=== PATIENT | female | born 1965 | race Two or more races ===

== ENCOUNTER 2017-09-20 12:46 | Outpatient (CLI) | payer OTHER ==
[2017-09-21] MEDS ORDERED: ALTACE2.5 MG PO (09:28)
== END 2017-09-20 14:29 | disposition home or self-care (01) ==
LOC: RAD 12:46
DX: J45.998 Other asthma (principal)

== ENCOUNTER 2017-09-27 05:35 | Day surgery (SDC) | payer OTHER ==
[~2017-09-27 05:35] MED LIST: ALTACE2.5 MG PO
[2017-09-27] MEDS ORDERED: CODE1TAB37 PO (11:04)
[2017-09-27] MEDS ORDERED: DOXYCYCLINE HY100 MG PO (11:04)
== END 2017-09-27 13:50 | disposition home or self-care (01) ==
LOC: CIR.AMB 05:35
DX: N84.0 Polyp of corpus uteri (principal); N72 Inflammatory disease of cervix uteri

== ENCOUNTER 2018-06-10 11:52 | Outpatient (CLI) | payer OTHER ==
[~2018-06-10 11:52] MED LIST changes: +CODE1TAB37 PO; +DOXYCYCLINE HY100 MG PO
== END 2018-06-10 17:00 | disposition home or self-care (01) ==
LOC: MAMO-SONO 11:52
DX: Z12.31 Encounter for screening mammogram for malignant neoplasm of breast (principal); N60.11 Diffuse cystic mastopathy of right breast

== ENCOUNTER → 2019-10-18 | Outpatient (CLI) | payer OTHER | END | disposition home or self-care (01) | LOC: RAD 11:00 | DX: J45.998 Other asthma (principal) ==

== ENCOUNTER 2019-10-23 10:45 | Inpatient (IN) | payer OTHER ==
[~2019-10-23] VITALS: Ht 157.5 cm; Wt 56.7 kg
[2019-11-01] MEDS ORDERED: KETO10TA2 PO (08:57)
[2019-11-01] MEDS ORDERED: Tylenol #3 PO (08:57)
[2019-11-01] MEDS ORDERED: FLAGYL500MG PO (08:57)
== END 2019-11-01 11:45 | disposition home or self-care (01) | DRG 742 ==
LOC: O/R 10-30 06:00 → OB/GYN 10-30 06:00 → SURH 10-30 07:00 → O/R 10-30 10:45 → OB/GYN 10-30 13:32
PROVIDERS: ADMIT Obstetrics & Gynecology
PROC: 0UB20ZZ Excision of Bilateral Ovaries, Open Approach (ICD-10-PCS; 2019-10-30)
PROC: 0UB70ZZ Excision of Bilateral Fallopian Tubes, Open Approach (ICD-10-PCS; 2019-10-30)
PROC: 0UQF0ZZ Repair Cul-de-sac, Open Approach (ICD-10-PCS; 2019-10-30)
PROC: 0USG0ZZ Reposition Vagina, Open Approach (ICD-10-PCS; 2019-10-30)
PROC: 0TJB8ZZ Inspection of Bladder, Via Natural or Artificial Opening Endoscopic (ICD-10-PCS; 2019-10-30)
PROC: 0UT90ZZ Resection of Uterus, Open Approach (ICD-10-PCS; principal; 2019-10-30 07:00)
DX: D25.1 Intramural leiomyoma of uterus (principal); K91.81 Other intraoperative complications of digestive system; N83.12 Corpus luteum cyst of left ovary; N83.11 Corpus luteum cyst of right ovary; N72 Inflammatory disease of cervix uteri; N80.2 Endometriosis of fallopian tube; N81.10 Cystocele, unspecified; K52.9 Noninfective gastroenteritis and colitis, unspecified

== ENCOUNTER 2020-03-09 12:18 | Outpatient (CLI) | payer OTHER ==
[~2020-03-09 12:18] MED LIST changes: +FLAGYL500MG PO; +KETO10TA2 PO; +Tylenol #3 PO
== END 2020-03-09 12:38 | disposition home or self-care (01) ==
LOC: SONOGRAMA 12:18
PROVIDERS: ATTEND Internal Medicine Cardiovascular Disease
DX: E03.8 Other specified hypothyroidism (principal)